=== PATIENT | male | born 1955 | race Caucasian/White ===

== ENCOUNTER 2016-12-04 17:24 | Observation (INO) | payer OTHER ==
[~2016-12-04] VITALS: Ht 188 cm; Wt 119.0 kg
[2016-12-04 17:34] VITALS: BP 151/94; PULSE 72; RESP 14; O2SAT 98
[2016-12-04 17:59] LABS: BASOPHILS % (AUTO) 0.5 % (0-3); EOSINOPHILS % (AUTO) 1.6 % (0-5); MONOCYTES % (AUTO) 13.1 % (4-12); Mean Corpuscular Hemoglobin 31.3 pg (27.0-35.0); Mean Corpuscular Volume 99.3 fL (81-100); NEUTROPHILS % (AUTO) 64.2 % (40-74); Platelet Count 164 bil/L (150-400)
--- NOTE | 2016-12-04 18:11 | ED.REPORT ---
HPI-General Illness Date of Service Dec 04, 2016 ED Provider: Satinder Baez MD 61 y/o male with a hx of DVT (on Warfarin) was sent to the ED after his CT angio chest resulted positive for pericardial effusion today.The pt got a CT done as ordered by his PCP due to persistent non-productive cough for the last 5 months. He also reports fatigue, SOB with exertion recently, intermittent subjective fever and night sweats. He denies chest pain but states "if I start doing a bunch of stuff, I feel there is a tightness in my chest". In the ED, the pt's labs show that he is anemic. He denies hx of anemia, melena, bleeding ulcers, weightloss, abdominal pain and using non-inflammatory medications. The pt states he had blood work done 2 days ago and was told he may have a blood clot. He has a family hx of clots. 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 He states he was in [facility] about 5 months ago but his cough started before he left. His states "we couldn't tie the cough to anything." The pt denies smoking. PCP: Jose Lai at [facility]. CODE STATUS: Full code Nursing Notes Stated Complaint: PERICARDIAL EFFUSION Chief Complaint: Chest Pain Nursing Notes Reviewed: Yes Allergies: Coded Allergies: No Known Allergies (Unverified , 12/04/16) Scheduled Warfarin Sodium (Warfarin Sodium) 5 Mg Tablet 5 MG PO 5 days per week Warfarin Sodium (Warfarin Sodium) 2.5 Mg Tablet 2.5 MG PO MON/FRI General Time Seen by MD: 18:11 Chief Complaint Cough Hx Obtained From: Patient Arrived By: Walk-in Sudden in Onset?: No Onset Occurred: More than a week ago... 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 Physical Exam Vital Signs Vital Signs Date Time Temp Pulse Resp B/P Pulse Ox O2 Delivery O2 Flow Rate FiO2 12/04/16 17:34 36.8 72 14 151/94 98 Room Air Initial VS: Reviewed Head / Eyes: Atraumatic, Normocephalic Extremities: Vascular intact, Neuro intact, No swelling, No tenderness Skin: Warm, Dry, No cyanosis Neurologic: Alert, Oriented, Nonfocal General/Constitutional: Awake, Alert, No acute distress, Well appearing, Well developed Neck: Atraumatic, Supple, Full range of motion, No adenopathy Neck Vascular: Positive: JVD mild Respiratory / Chest: Atraumatic, Breath sounds NL, Breath sounds = bilat, No respiratory distress, No rales, No rhonchi, No wheezing Cardiovascular: Heart rate NL, Regular rhythm, Heart sounds NL, No gallop, No murmurs, No rubs Abdomen: Atraumatic, Soft, Non-tender, No guarding, No rebound Rectum / Perineum: Atraumatic Trace guaiac positive Interpretation & Diagnostics Lab Results Interpretation Result Diagram: 12/04/16 1750 12/04/16 1750 Test 12/04/16 17:50 White Blood Count 5.7th/mm3 (3.8-10.1) Red Blood Count 2.75mil/mm3 (4.40-5.80) Hemoglobin 8.6g/dL (13.8-17.2) Hematocrit 27.3% (41.0-50.0) Mean Corpuscular Volume 99.3fL (81-100) Mean Corpuscular Hemoglobin 31.3pg (27.0-35.0) Mean Corpuscular Hemoglobin Concent 31.5% (32.0-37.0) Red Cell Distribution Width 16.6% (12.3-15.4) Platelet Count 164bil/L (150-400) Neutrophils (%) (Auto) 64.2% (40-74) Lymphocytes (%) (Auto) 20.1% (14-46) Monocytes (%) (Auto) 13.1% (4-12) Eosinophils (%) (Auto) 1.6% (0-5) Basophils (%) (Auto) 0.5% (0-3) Erythrocyte Sedimentation Rate > 140mm/hr (0-30) Prothrombin Time 17.4sec (8.1-12.5) Prothromb Time International Ratio 1.61ratio Sodium Level 133mEq/L (134-144) Potassium Level 4.5mEq/L (3.5-5.2) Chloride Level 96mEq/L (97-108) Carbon Dioxide Level 20mmol/L (18-29) Blood Urea Nitrogen 11mg/dL (8-27) Creatinine 1.02mg/dL (0.76-1.27) Estimat Glomerular Filtration Rate 79mL/min (>59) Glucose Level 110mg/dL (60-99) Calcium Level 9.0mg/dL (8.5-10.1) Magnesium Level 1.9mg/dL (1.6-2.6) Iron Level 49ug/dL (35-150) Total Iron Binding Capacity 198ug/dL (250-450) Percent Iron Saturation 25%sat (15-50) Unsaturated Iron Binding 148.7ug/dL Total Bilirubin 0.4mg/dL (0.0-1.2) Aspartate Amino Transf (AST/SGOT) 61U/L (0-50) Alanine Aminotransferase (ALT/SGPT) 93U/L (0-44) Alkaline Phosphatase 102U/L (25-160) Troponin T < 0.010ug/L (0.0-0.011) Total Protein 9.5g/dL (6.4-8.4) Albumin 2.8g/dL (3.4-5.0) Thyroid Stimulating Hormone (TSH) 1.250uIU/mL (0.450-4.500) Hold Elias Top Tube Received (Received) ECG Interpretation ECG Interpretation: Sinus rhtyhm normal. Rate 69 Low voltage without electric alternans No acute changes Time: 06:09 Interpreted by: ED physician Normal ECG Interpretation: Normal rate, Normal sinus rhythm Re-Eval/Medical Decision Med Decision/Clinical Course 61 year old male with new finding of pericardial effusion. Stable at present, will be admitted for further eval/cardiology consult. Time of Eval: 18:52 Re-Evaluation/Progress Note: Rechecked pt. Discussed lab results, imaging results, diagnosis, consult with Dr. Sierra and plan to admit. The pt understands and agrees with the plan. All questions answered. Consultation #1: Referral / Consult Name: Evangelina Sierra MD Consulted With: Cardiology Call Returned at: 18:44 Note: Dr. Sierra will call back after reviewing imaging. Consultation #2: Referral / Consult Name: Evangelina Sierra MD Consulted With: Cardiology Call Returned at: 18:52 Teacher'S Assistant: Will see patient, Agrees with eval, Agrees with plan Note: Dr. Sierra does not think stat ECHO is needed. She recommends ECHO, SPEP, UPEP, ECHO, Tsh and ZOYA after admit. Consultation #3: Referral / Consult Name: Louis Honeycutt MD Consulted With: Hospitalist Call Returned at: 19:13 Teacher'S Assistant: Will see patient, Agrees with eval, Agrees with plan, Accepts admit Counseled Regarding: Diagnosis, Lab results, Need for admission Discharge & Departure Primary Impression: Pericardial effusion Disposition: ADMITTED TO HOSPITAL Discharge Condition All VS Reviewed: Yes Referrals: Jose Lai MD (PCP) Scribe Attestation Portions of this note were transcribed by Chad Sanchez. I, , personally performed the history, physical exam and medical decision- making;I reviewed and confirmed the accuracy of the information in the transcribed note. Signed by Quincy Rowland. 12/04/16 19:30 copies to: Jose Lai MD, Donald L MD Dec 04, 2016 18:11 Chad Sanchze Dec 04, 2016 18:15
[2016-12-04 18:28] LABS: TROPONIN T < 0.010 ug/L (0.0-0.011)
[2016-12-04 18:37] LABS: Magnesium 1.9 mg/dL (1.6-2.6)
[2016-12-04 19:00] LABS: INR 1.61 ratio
[2016-12-04] MEDS ORDERED: WARF5TAB7 PO (19:24)
[2016-12-04] MEDS ORDERED: WARF2.5T82 PO (19:24)
[2016-12-04] MEDS ORDERED: Ondansetron 2 mg/mL 2 mL Inj IVPUSH PRN ×2 (19:40→20:35)
[2016-12-04] MEDS ORDERED: Alum-Mag Hydrox-Simeth 30 mL Suspension PO PRN ×2 (19:40→20:35)
[2016-12-04] MEDS ORDERED: Polyethylene Glycol (PEG) 17 Gm Powder PO PRN (20:35)
[2016-12-04 21:03] LABS: Unsaturated Iron Binding 148.7 ug/dL
--- NOTE | 2016-12-04 21:03 | PCM.HPMED ---
Subjective Date of Service Dec 04, 2016 Primary Provider: Admitting Physician: Louis Honeycutt MD Primary Care Physician: Jose Lai MD Attending Physician: Louis Honeycutt MD Chief Complaint: Cough, pericardial effusion History of Present Illness: Patient is a 61 y/o male with a hx of DVT (on chronic Warfarin) who was sent to the ED after his CT angio chest resulted positive for pericardial effusion today.The CT chest was ordered by his PCP due to persistent non-productive cough for the last 5 months. He also reports fatigue, mild SOB with exertion recently (feels winded after climbing a set of stairs), intermittent chest tightness, intermittent subjective fever and night sweats. He denies chest pain , palpitations, dizziness, or fainting. The pt states he had blood work done 2 days ago and was told he may have a blood clot. He has a family hx of clots. He states he was worked up in the past for a clotting disorder but the panel was negative. Hb was 8.6, Hct was 27.3. He denies hx of anemia, melena or hematochezia, bleeding ulcers, weight loss, abdominal pain and using NSAIDs. His last colonoscopy was 3 years ago, with some polyps removed. He was told to repeat the colonoscopy in 5 years. He denies family history of colon cancer. 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 He states he was in [place] about 5 months ago but his cough started before his trip. BP was 151/94, Na 133, AST 61, ALT 93, trop <0.01, ESR >140. INR 1.61. PCP: Jose Lai Review of Systems: Comprehensive review of systems conducted and was negative except for the pertinent positives listed above. Allergies Coded Allergies: No Known Allergies (Unverified , 12/04/16) Home Medications Warfarin 2.5 mg Mon/Fri and 5 mg other days PMH DVT Surgical History None Family History Family hx of clots - Cousin, uncle, grandfather Grandmother - Diabetes Social History Smoking Status: Never Smoker Exam Vital Signs Vital Sign - Last Date Time Temp Pulse Resp B/P Pulse Ox O2 Delivery O2 Flow Rate FiO2 12/04/16 17:34 36.8 72 14 151/94 98 Room Air Exam General: Alert, Oriented X3, Cooperative, No acute distress Head: Normocephalic, atraumatic. External ears normal. Eyes: PERRLA, EOMI. Anicteric sclerae. Mouth: Mouth normal, Mucous membranes moist/pink Neck: Neck supple with full range of motion. Chest& Lungs: Clear to auscultation bilaterally with no crackles, wheezes, or rhonchi. Cardiovascular: Regular rate/rhythm, Normal S1, Normal S2, No murmurs/rubs/ gallops Abdomen: Non-tender, Non-distended, No masses, Normoactive bowel tones, Soft Musculoskeletal: Normal range of motion Extremities: No cyanosis/clubbing/edema bilaterally Neurological: Grossly neurologically intact. Normal speech Lab and Diagnostics Result Diagram: 12/04/16174912/04/161749 X-Rays, CTs and MRIs Date of Service: 12/04/16 155 PROCEDURE: CT ANGIO CHEST PULMONARY EMBOLISM ([id number]) INDICATIONS: DYSPNEA Moderate pericardial effusion. Acute pericarditis and/or tamponade physiology cannot be excluded. Recommend clinical correlation. No pulmonary embolism identified. No acute consolidation. Dictated by: Ozzy Castaneda M.D. on 12/04/2016 at 17:02 Approved by: Ozzy Castaneda M.D. on 12/04/2016 at 17:24 Assessment & Plan Patient is a 61 y/o male with a hx of DVT (on chronic Warfarin) who was sent to the ED after his CT angio chest resulted positive for pericardial effusion today. Pericarditis, acute. Present on admission. - CT angio showed moderate pericardial effusion. Pt reports cough, dyspnea, chest pressure, and night sweats. No JVD on exam, vitals are stable, and patient is asymptomatic. EKG shows normal sinus rhythm. Pt appears to be stable with low risk of tamponade at this time. ESR elevated. No recent viral/ bacterial illness, and pt denies any exposure to TB, although he did visit the [place] 5 months ago. Although suspicion is low, will order QF gold to rule out TB. No hx of recent trauma, radiation, or IA. Differential includes autoimmune vs malignant process. Suspicion low for infectious process as pt has no measured fevers and no infectious markers. As he is also anemic and has hx of polyps, he should follow-up with GI in the outpatient setting as well for eval for early colonoscopy. The patient is stable for now, but may eventually need a pericardiocentesis for diagnostic purposes. - TSH - ZOYA - SPEP/UPEP - Quantiferon Gold ordered - Echocardiogram in AM - Monitor on telemetry - Monitor vitals regularly - Dr. Sierra is consulted. We appreciate her input. - Outpatient follow up with GI for colonoscopy - Consider repeat hypercoagulable panel outpatient - Consider pericardiocentesis if workup is negative. Elevated LFTs, acute. Present on admission. - Pt has mildly elevated. Pt is asymptomatic. - Abd US ordered Anemia, unknown chronicity. - Hb 8.6. Pt has history of polyps. Denies hematochezia/melena. Guaiac mildly positive in ED. - Recheck CBC in AM - Outpatient follow up with GI for colonoscopy History of DVT - Continue home warfarin - Bowel regimen as needed - Antiemetic as needed Patient is admitted under observation status with expected length of stay less than 2 midnights due to severity of presenting symptoms, risk of adverse event, and complexity of treatment plan. VTE Prophylaxis: Other (Pt on warfarin) Resuscitation Status: CPR: Attempt Resuscitation Figueroa Hall Dec 04, 2016 21:03
--- NOTE | 2016-12-04 21:05 | PCM.CONPHA ---
Assessment/Plan Assessment/Plan ANTICOAGULATION MANAGEMENT BY PHARMACY -INDICATION: DVT HX -HOME DOSE: 2.5 MG MON/FR 5 MG AOD -CONCURRENT ANTICOAGULATION: NONE -COAG TRENDS: Date -Nov INR 1.61 PLAN: PATIENTS TOOK HOME DOSE TODAY SO WILL WAIT UNTIL TOMORROWS INR COMES BACK AND EVALUATE. Pharmacy appreciates consult and will continue to monitor. THANKS! Jania Hoffman PharmD Dec 04, 2016 21:05
[2016-12-04 21:07] VITALS: BP 144/88; PULSE 76; RESP 16; O2SAT 97
[2016-12-04 21:27] VITALS: BP 143/96; PULSE 73; RESP 18; O2SAT 96
[2016-12-04 22:52] LABS: APPEARANCE,URINE HAZY (CLEAR,HAZY); COLOR,URINE STRAW (YELLOW); OCCULT BLOOD,URINE MODERATE (NEGATIVE); PH,URINE 5.5 (5.0-8.0); UROBILINOGEN,URINE NORMAL (NORMAL)
--- NOTE | 2016-12-04 23:59 | NUR ---
ADMIT NOTE Pt arrived to [facility] approx 2124. Pt able to ambulate from stretcher to bed, steady on feet. VS obtained. Pt placed on remote telemetry, medical lab technician notified. IV saline locked, flushed, patent. US of abdomen performed in pts room. Pt denies any pain. Continue to monitor. Call light in reach. Pts in room. Intentional rounding.
[2016-12-05] VITALS (7 sets, daily range): BP systolic 110–142; BP diastolic 71–86; PULSE 66–78; RESP 18; O2SAT 96–97
[2016-12-05 07:25] LABS: BASOPHILS % (AUTO) 0.6 % (0-3); EOSINOPHILS % (AUTO) 1.9 % (0-5); Mean Corpuscular Hemoglobin 31.7 pg (27.0-35.0); Mean Corpuscular Volume 99.6 fL (81-100); NEUTROPHILS % (AUTO) 67.2 % (40-74); Platelet Count 160 bil/L (150-400)
[2016-12-05 07:54] LABS: INR 1.74 ratio
--- NOTE | 2016-12-05 09:23 | CONS ---
[address] [address] CONSULTATION REPORT PATIENT: GEORGE JUÁREZ : 1955 MR#: [id number] ADMIT: 12/04/2016 JOB ID: [id number] DATE OF SERVICE: 12/05/2016 IDENTIFICATION: Dr. Hall has asked that I consult on this 61-year-old male admitted with a pericardial effusion. 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 He has a family history of DVT, but apparently personally has had a negative hypercoagulable workup. He was generally in his usual state of health until around five months ago when he noted a dry nonproductive cough. He traveled to the [facility] around three months ago and felt relatively well, but around five weeks ago awoke with dyspnea and diaphoresis with sweating through his sheets. He has not had any further episodes of this, but around 2-3 weeks ago started to note the onset of mild exertional dyspnea without any resting dyspnea. This dyspnea has not been particularly progressive. His energy level, however, clearly has declined. He described some brief exertional chest pressure, but none lasting more than a few seconds located at the mid chest without any radiation and comes on rather unpredictably. He has had no sense of any palpitations or lightheadedness. He has chronic mild edema without any recent change. He presented to Dr. Lai's office and had some type of blood work that was concerning for a blood clot and therefore, was sent for a chest CT angiogram which was unremarkable for any pulmonary embolism or pleural effusion, but suggested a moderate pericardial effusion although on my personal review of those images, I suspect it is more small to moderate, if that. There is some pericardial calcification, noted however. On the basis of these findings, he was sent to the emergency department where he was noted to be quite stable with a heart rate of 72 and a blood pressure of 151/94. However, he was found to be significantly anemic with a hematocrit of 27% with a weakly positive guaiac stool. His AST and ALT were also moderately elevated at 61 and 93, respectively. His ESR was markedly elevated at 140. He was subsequently admitted for further evaluation. Currently, he feels well without any specific complaints. He is able to lay flat without any difficulty. He denies any tuberculosis exposure or previous history of tuberculosis. There is no previous history of tobacco use, hypertension, or diabetes. He is uncertain of his lipid status. PAST MEDICAL HISTORY: Otherwise unremarkable, except for his history of DVT. HOME MEDICATIONS: Warfarin. ALLERGIES: No known drug allergies. FAMILY HISTORY: No family history of heart disease, with the exception of a brother who had a "slight heart attack" in his early 50s, but is a long-term smoker. 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 He admits to 1-2 alcoholic beverages per week on average. REVIEW OF SYSTEMS: A complete review is performed and is notable for the absence of any recent weight change. He denies any fevers or chills although has had some "flushing" but has never had an elevated temperature. Denies any recent vision change or ENT problems. Denies any hemoptysis or productive cough. No history of any peptic ulcer disease or overt evidence of GI blood loss. He denies any recent change in his bowel habits. No genitourinary symptoms or hematuria. Denies any musculoskeletal complaints. Never has had any stroke-like symptoms. Denies any history of thyroid or bleeding disorder. No history of anxiety or depression. PHYSICAL EXAMINATION: General: Pleasant, moderately obese, middle-aged white male, in no distress. Vital signs: HR 78, BP 142/85. O2 saturation 97% on room air. Weight is 119 kg. Skin: Warm and dry with a somewhat thor complexion. HEENT: EOMI without arcus. He has fairly good dentition. Lungs: Clear bilaterally to auscultation and percussion without any rales or wheeze. CV: Nonpalpable PMI with a regular rate and rhythm with occasional premature beat. There are no appreciable murmurs, gallops, or rubs. There is no obvious JVD. Carotid and femoral pulses are 2+ bilaterally with a normal upstroke without bruit. Dorsalis pedis pulses are 2+ bilaterally and posterior tibial pulses 1+ on the right and 2+ on the left. Abdomen: Mildly obese, but nondistended, nontender without any palpable masses or organomegaly. Normal bowel tones are present without bruits. There is no obvious hepatojugular reflux. Extremities: Warm with trace edema. Neuro: Moves all four extremities. Psych: Awake, alert, and oriented. LABORATORY: White count was 5.7 with hematocrit of 27% on admission and is 26% today. ESR is greater than 140. INR was 1.6. Sodium this morning is 137 with a potassium of 4.5, and a BUN of 10 with a creatinine of 1.0. Glucose is 111. Iron is 49 with a TIBC of 198. His AST has improved from 61 down to 47 and his ALT is improved from 93 down to 77. Albumin is 2.7. TSH was normal at 1.25. SPEP is pending. UPEP is pending. ZOYA is pending. ELECTROCARDIOGRAM: Shows sinus rhythm at 69 beats per minute with a borderline incomplete right bundle branch block, but otherwise normal. IMPRESSION: 1. Pericardial effusion of uncertain etiology. On the basis of his CT, I doubt that there is any tamponade physiology and the effusion does not appear to be large enough to tap, but this will be confirmed by echocardiography. The differential diagnosis for this would include an infectious process, most likely viral, but with the pericardial calcification, tuberculosis is also a concern, particularly given his cough and fatigue. Therefore, an evaluation for tuberculosis should be pursued and an infectious disease consultation may be appropriate, but I will defer this to the hospitalist. Alternatively, this could represent an autoimmune disorder, particularly with his elevated ESR; although, he has no other stigmata of such. A rheumatoid arthritis factor should also be checked. Finally, malignancy is always a concern. With his anemia, I would be concerned about some type of a gastrointestinal process and this should be thoroughly investigated. His albumin is fairly markedly low and he has abnormal liver function. Also raising a concern for some type of systemic process. As long as his echocardiogram shows no evidence for tamponade or significant constrictive pericarditis, then I think that he can be discharged from a cardiology standpoint, but may require further evaluation because of his anemia. A repeat echocardiography could be considered in several months depending upon the results of his diagnostic studies. 2. Exertional dyspnea and fatigue. Could be reflective of a systemic illness and/or his anemia which is significant. Further evaluation per the hospitalist. 3. Atypical mild exertional chest discomfort. The brevity of his discomfort mitigates against angina and he has minimal risk factors. Yet, an ischemic evaluation could be pursued at some point, but I would defer this until his anemia is corrected which may resolve his chest discomfort. If he continues to have occasional chest discomfort. After repletion of his hematocrit, then an exercise treadmill test can be considered as an outpatient. 4. History of deep venous thrombosis (DVT) per the hospitalist. 5. Uncertain lipid status. A lipid panel should be checked at some point, but can be deferred at this time. 6. Abnormal liver function tests (LFT). As above. 7. Anemia. As above. RECOMMENDATION: 1. Evaluate for possible tuberculosis. 2. Check a rheumatoid factor. 3. Check an echocardiogram. As long as this does not show any evidence for tamponade or constrictive pericarditis, there is a limited role for Cardiology. 4. Further evaluation for possible malignancy and cause of his anemia which is deferred to the hospitalist. 5. At this point, I will not plan on following up on the patient unless his echocardiogram shows some concerning the abnormal results. TIME SPENT: I spent 1 hour and 30 minutes reviewing the patient's medical record, interviewing and examining the patient, and answering his questions.
--- NOTE | 2016-12-05 10:30 | PCM.PHAPRO ---
Progress Cough, pericardial effusion WARFARIN DOSING PER PHARMACY Date -Dec 05-Nov INR 1.61 1.74 INR change 0.13 Warf Dose 5 MG 5MG Pharmacy will continue to follow, thank you. Doris Gaspar PharmD Dec 05, 2016 10:30
--- NOTE | 2016-12-05 11:31 | DRSVH ---
[facility] [address] [place] [address] Echocardiogram Report Name: GEORGE JUÁREZ Date : 12/05/2016 Height: 74 in Hospital Exam Location: [facility] Weight: 26 2 lb Gender: Male BSA: 2.4 m2 : 1955 Age: 61 yrs BP: 142/85 mmHg Reason For Study: Pericardial Effusion Ordering Physician: HOSPITALIST [facility] Performed By: Mukul Becerra Referring Physician: JUDE CHE Interpretation Summary The left ventricle is normal in size and left ventricular systolic function is normal with the ejection fraction estimated to be 60-65% without focal wall motion abnormalities athough there is paradoxical motion to the septum. There is borderline concentric left ventricular hypertrophy. Assessment of diastolic parameters indicates normal left ventricular diastolic function and normal filling pressures. The right ventricle is normal size and right ventricular systolic function is at the lower limits of normal. Pulmonary artery pressures cannot be estimated because of the lack of a measurable TR jet velocity but the IVC is significantly dilated, suggesting a high right atrial pressure of 15 mm Hg. Both atria are normal in size. There is no significant valvular heart disease. The ascending aorta and aortic arch are mild-moderately enlarged. There is a trivial to small noncircumferential pericardial effusion noted, mosty adjacent to the right ventricle without echocardiographic indications of cardiac tamponade. Procedure: A two-dimensional transthoracic echocardiogram with color flow and Doppler was performed. The study quality was technically adequate. There is no prior echocardiogram noted for this patient. The patient was in normal sinus rhythm during the exam. Left Ventricle: The left ventricle is normal in size. There is borderline concentric left ventricular hypertrophy. Left ventricular systolic function is normal without focal wall motion abnormalities. The ejection fraction is estimated to be 60-65%. Although there is paradoxical motion to the septum. Assessment of diastolic parameters indicates normal left ventricular diastolic function and normal filling pressures. Right Ventricle: The right ventricle is normal size. Right ventricular systolic function is at the lower limits of normal. Atria: Both atria are normal in size. The interatrial septum is intact with no evidence for an atrial septal defect. Mitral Valve: There is mild mitral annular calcification. There is no mitral regurgitation noted. Aortic Valve: The aortic valve is trileaflet. The aortic valve is slightly calcified. The aortic valve opens well. No aortic regurgitation is present. Tricuspid Valve: The tricuspid valve is normal. There is trace tricuspid regurgitation. Pulmonary artery pressures cannot be estimated because of the lack of a measurable TR jet velocity. Pulmonic Valve: The pulmonic valve leaflets are thin and pliable; valve motion is normal. There is no pulmonic valvular regurgitation. There is no significant valvular heart disease. Great Vessels: The aortic root is normal size. The ascending aorta is moderately enlarged. The aortic arch is mild-moderately enlarged. The pulmonary artery is normal size. The IVC is dilated (diameter is greater than 2.1 cm) and it collapses less than 50% with a sniff. This suggests a high right atrial pressure of 15 mm Hg. Pericardium/ Pleura There is a trivial to small pericardial effusion noted. There are no echocardiographic indications of cardiac tamponade. There is no pleural effusion. MMode/2D Measurements & Calculations LVIDd: 4.5 cm RA long axis LVOT diam: 2.2 cm LVIDs: 3.3 cm LA A2 area: 19.8 cm Ao root diam FS: 27.4 % LA A4 area: 21.0 cm RA area IVSd: 1.1 cm LA length (vol) asc Aorta Diam LVPWd: 1.1 cm : 19.3 cm LA vol: 59.2 ml RA vol Ao Arch Diam (Prox LA vol index : 62.0 ml Trans): 3.4 cm RA : 25.4 mm2 IVC diam: 3.2 cm LV barry. diameter/BSA LV sys. diameter/BSA RVD1 (basal) TAPSE: 1.2 cm (cm/m^2): 1.9 (cm/m^2): 1.3 Doppler Measurements & Calculations Ao V2 max: 123.4 cm/secMV E max andriy MV E/A: 1.6 PA V2 max Ao max P.1 mmHg : 111.4 cm/sec Med Peak E' Andriy : 70.2 cm/sec Ao mean P.1 mmHg MV A max andriy PA mean PG LVOT Max Andriy : 68.7 cm/sec E/E' med: 11.6 : 1.3 mmHg : 106.0 cm/sec Lat Peak E' Andriy BALBINA(I,D): 4.1 cm E/E' lat: 13.7 sev ratio: 1.1 E/e' average MV dec time: 0.13 sec Ao V2 mean LV V1 max PG PA V2 mean : 83.5 cm/sec : 55.5 cm/sec Ao V2 VTI: 19.1 cm LV V1 VTI: 20.5 cmPA pr(Accel) : 41.6 mmHg BALBINA(V,D): 3.2 cm2 BALBINA indexed to BSA (cm^2/m^2): 1.7 Reading Physician:11:30 AM
--- NOTE | 2016-12-05 11:53 | NUR ---
Social Work: Screening/Readiness for Discharge D: EMR reviewed. Pt is a 61 y/o male admitted for pericardial effusion per H&P. Per MD in AM multi-disciplinary rounds, pt is likely to discharge today pending cardiology and echo results. Pt's insurance if [facility] and [facility] is Jose Lai MD. Pt's NOK is spouse, Lety Wadsworth ([phone]). A: Pt who is independent at baseline P: Pt likely to discharge home today via POV - pending cardiology and echo results. Per AM multi-disciplinary rounds, no discharge needs identified. SW will continue to follow if needs arise. PACO Hager Addendum: 12/05/16 at 1517 by PEÑA LEBLANC notified SW that pt will not discharge today as originally anticipated in AM multi-disciplinary rounds. Pt has not been cleared by cardiology and will be receiving TB test. Pt likely to discharge once pt has been cleared by cardiology and TB test results are determined. PACO Hager
[2016-12-05] MEDS ORDERED: Furosemide 10 mg/mL 4 mL Inj IVPUSH ONE (16:20)
--- NOTE | 2016-12-05 16:24 | PCM.PNMED ---
Subjective Date of Service Dec 05, 2016 Subjective Patient is a 61 y/o male with a hx of DVT (on chronic Warfarin) who was sent to the ED after his CT angio chest resulted positive for pericardial effusion today.The CT chest was ordered by his PCP due to persistent non-productive cough for the last 5 months. He also reports fatigue, mild SOB with exertion recently, intermittent chest tightness, intermittent subjective fever and night sweat. Symptoms have not changed today. He denies any hemoptysis, hematuria, melena, hematochezia. No other signs of bleeding reported. Exam Vital Signs Vital Sign - Last Date Time Temp Pulse Resp B/P Pulse Ox O2 Delivery O2 Flow Rate FiO2 12/05/16 14:48 36.7 66 18 120/82 96 Room Air Intake and Output 12/04/16 12/04/16 12/05/16 Cumulative From/Thru 15:00 23:00 07:00 12/04/16 17:34 - 12/05/16 06:22 Intake Total 700 ml 700 ml Output Total 1000 ml 1000 ml Balance -300 ml -300 ml Intake Oral 700 ml 700 ml Output Urine Total 1000 ml 1000 ml Exam General: Alert, Oriented X3, Cooperative, No acute distress Head: Normocephalic, atraumatic. External ears normal. Eyes: PERRLA, EOMI. Mouth: Mouth normal, Mucous membranes moist/pink Neck: Neck supple with full range of motion. Chest& Lungs: Clear to auscultation bilaterally with no crackles, wheezes, or rhonchi. Cardiovascular: Regular rate/rhythm, Normal S1, Normal S2, No murmurs/rubs/ gallops Abdomen: Non-tender, Non-distended, No masses, Normoactive bowel tones, Soft Musculoskeletal: Normal range of motion Extremities: No cyanosis/clubbing/edema bilaterally Neurological: Grossly neurologically intact. Normal speech Lab and Diagnostics Result Diagram: 12/05/16 0710 12/05/16 0710 X-Rays, CTs and MRIs Date of Service: 12/04/16 1551 PROCEDURE: CT ANGIO CHEST PULMONARY EMBOLISM ([id number]) INDICATIONS: DYSPNEA Moderate pericardial effusion. Acute pericarditis and/or tamponade physiology cannot be excluded. Recommend clinical correlation. No pulmonary embolism identified. No acute consolidation. Dictated by: Ozzy Castaneda M.D. on 12/04/2016 at 17:02 Approved by: Ozzy Castaneda M.D. on 12/04/2016 at 17:24 Assessment & Plan Patient is a 61 y/o male with a hx of DVT (on chronic Warfarin) who was sent to the ED after his CT angio chest resulted positive for pericardial effusion today. Pericarditis, acute. Present on admission. - CT angio showed moderate pericardial effusion. Pt reports cough, dyspnea, chest pressure, and night sweats. No JVD on exam, vitals are stable, and patient is asymptomatic. EKG shows normal sinus rhythm. Pt appears to be stable with low risk of tamponade at this time. ESR elevated. No recent viral/ bacterial illness, and pt denies any exposure to TB, although he did visit the [place] 5 months ago. Although suspicion is low, will order QF gold to rule out TB. No hx of recent trauma, radiation, or MN. Differential includes autoimmune vs malignant process. Suspicion low for infectious process as pt has no measured fevers and no infectious markers. As he is also anemic and has hx of polyps, he should follow-up with GI in the outpatient setting as well for eval for early colonoscopy. The patient is stable for now, but may eventually need a pericardiocentesis for diagnostic purposes. - TSH - ZOYA - SPEP/UPEP - Quantiferon Gold ordered - Echocardiogram in AM - Monitor on telemetry - Monitor vitals regularly - await cardiology input - Outpatient follow up with GI for colonoscopy - Consider repeat hypercoagulable panel outpatient - Consider pericardiocentesis if workup is negative. will discuss further with cardiology -will diurese patient -ID consult placed Elevated LFTs, acute. Present on admission. - Pt has mildly elevated. Pt is asymptomatic. - Abd US ordered Anemia, unknown chronicity. - Hb 8.6. Pt has history of polyps. Denies hematochezia/melena. Guaiac mildly positive in ED. - Recheck CBC in AM -will start iron supplementation,b12 folate level ordered -no signs of bleeding - Outpatient follow up with GI for colonoscopy History of DVT - Continue home warfarin - Bowel regimen as needed - Antiemetic as needed Patient is admitted under observation status with expected length of stay less than 2 midnights due to severity of presenting symptoms, risk of adverse event, and complexity of treatment plan. VTE Prophylaxis: Other (Pt on warfarin) Resuscitation Status: CPR: Attempt Resuscitation Robert,Birpal MD Dec 05, 2016 16:24
--- NOTE | 2016-12-05 18:36 | CONS ---
[address] [address] CONSULTATION REPORT PATIENT: GEORGE JUÁREZ : 1955 MR#: [id number] ADMIT: 12/04/2016 JOB ID: [id number] DATE OF SERVICE: 12/05/2016 INFECTIOUS DISEASE CONSULTATION: I thank Dr. Jones for this timely consult. REASON FOR CONSULTATION: Unexplained high sedimentation rate, cough, and weakness. 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 He was in his usual state of health until about five months ago by his report when he developed a dry cough. This cough was initially worse and slowly has improved but it persists and hangs on at this point. He also has noticed some exertional fatigue over the past few months as well as on a single occasion a drenching night sweat and some subjective fevers, which when checked were actually normal and were not elevated. The patient has a past medical history essentially confined to DVTs in both lower extremities. For which he has been on Coumadin for decades. Recently there was concern that he might have a pulmonary embolism. For that reason he underwent an outpatient CT scan of the chest which actually ended showing what was thought to be a moderate pericardial effusion. This led him to the ED and admission yesterday for evaluation of pericardial effusion. Subsequently he has been seen by Cardiology and had an echo which shows a small and perhaps even trivial pericardial effusion and no evidence of significant cardiac disease. As an incidental finding, it has been noted that he is anemic and has a very high sedimentation rate. The CT scan of the chest was done to look for a PE did not show any PE of course but did show some subtle atelectasis which led to concerns about tuberculosis and led to my being consulted with the question of whether he might have TB or some underlying latent infection. I have reviewed the patient's history in detail, as well as his travel history. He and his go on frequent cruises which are at least once a year which may involve the [place] or [place] areas, but these are strictly on and off standard cruises without extended exposure in the developing world. Otherwise, there has been no exotic travel and no travel to [place] or [place]. The patient is a nonsmoker and drinks alcohol socially. He does not use illicit drugs and has no exotic animal or other exposures. There has been no history of TB exposure. 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 He does not smoke, drinks alcohol only socially, and does not use illicit drugs. Travel history already summarized. FAMILY HISTORY: Negative for TB in first- or second-degree relatives. REVIEW OF SYSTEMS: No significant headache. No visual change. No pain with chilling. No oral lesions or trouble swallowing. No odynophagia or dysphagia. No stiff neck. He does have a cough which he has had for five months and it predates the most recent cruise he and his took in July and it is actually getting better. There has never been any hemoptysis or sputum production. No chest pain has been noted and no significant nausea, vomiting, or diarrhea. No dysuria, urgency, or frequency. No hematuria. Specifically, no swelling of the joints. No skin rash. Remainder of the review of systems is negative. PHYSICAL EXAMINATION: Reveals an afebrile gentleman temperature 36.7, pulse 66, respiratory rate 18, blood pressure 120/82, saturating well on room air. Examination of the head reveals no trauma. The patient's mental status is entirely normal. Conjunctivae are pale. Oral cavity without thrush, hairy leukoplakia, or palatal petechia. Neck supple, without adenopathy or JVD. Lungs are clear anteriorly and posteriorly. Cardiac tones regular rate and rhythm, without murmur. Abdomen soft, nontender, without organomegaly. No suprapubic fullness. No Duran catheter. No evidence of synovitis. No skin rash. Peripheral pulses are excellent. Neurologic exam is completely normal. LABORATORIES: Include white count of 5500 with normal diff. Hematocrit 26, platelet count 160,000. Sedimentation rate greater than 140. Creatinine 0.97. Alk phos normal at 96, though the ALT is high at 77. AST 47. Bilirubin 0.5. Albumin a bit low at 2.8. TSH is normal. SPEP pending. Urinalysis completely normal. QuantiFERON Gold has been ordered and is pending. Rheumatoid factor and ZOYA pending. An abdominal ultrasound was done yesterday and interestingly there is no reading and I will be asking Radiology to supply the final reading there. I did review in detail the CT scan that was done as an outpatient. There is really nothing in the CT scan of the chest of concern except some very very subtle atelectasis perhaps. Certainly there is nothing there that would warrant any concern about tuberculosis. IMPRESSION: I think it is highly unlikely this patient has tuberculosis. There is no known exposure history and the patient has a dry nonproductive cough for the past few months which is actually getting better rather than worse. His CT scan of the chest is basically clear and he has no weight loss. When looking at his laboratories there are really three abnormalities. One is the sedimentation rate, which is over 140. Sed rates that high can be due to infection malignancy or connective tissue disease assuming the patient has normal renal function. Sed rates tend to be a bit higher in people who are anemic, but I do not think his anemia accounts for all of his high sed rate. Additionally, the patient has an anemia with a normal MCV which is interesting and has a guaiac positive stool. The 3rd laboratory abnormality is his albumin, which is a little bit low for a gentleman who is purportedly completely healthy. I think his exertional shortness of breath and fatigue he has had the last few months are related to his anemia and somehow we need a unifying diagnosis for anemia, high ESR, and a slightly low albumin. The most likely thing here of course would be some form of gastrointestinal process involving the stomach, duodenum, small-bowel or large-bowel, and it is notable that the patient did have an abnormal colonoscopy three years ago and is scheduled for another in two years. Also possible would be some form of occult abdominal malignancy as we have a CT scan which appears normal. In terms of infection I think it is highly unlikely that he actually has any infection, though it is worthwhile to look for hepatitis B and C. At this point, and perhaps just for completeness's sake, we will get two blood cultures to exclude the highly unlikely possibility of endocarditis. RECOMMENDATIONS: 1. Blood cultures x2. 2. Hep B antibody. 3. Hep C antibodies. 4. CRP. 5. I would consider doing a CT scan with contrast of the abdomen just as part of our fishing expedition for anemia and very high sed rate. 6. The patient tells me he has already been scheduled for colonoscopy and I suspect that he will also eventually require upper endoscopy if the colonoscopy is not diagnostic. 7. I see no indication for any antibiotics or infectious disease diagnostic studies beyond those mentioned above. Thank you very much for this consult.
--- NOTE | 2016-12-05 23:14 | NUR ---
Abdominal US Pt asked the result of Abdominal US completed yesterday 12/04, no result shown up in [facility]. US [id number] called, no one answer the phone.
[2016-12-06 00:51] VITALS: BP 122/77; PULSE 64; RESP 18; O2SAT 96
--- NOTE | 2016-12-06 05:26 | NUR ---
Uneventful Night Pt denies any pain/SOB at rest/N/V/Fever/chills. Cough intermittently,nonproductive, night sweat noted. VSS, afebrile. Lung sounds clear, distant S1 S2, no murmur or rubs noted. Tele: SR 60s 70s per vehicle monitor technician. Abdomen soft, nontender,BT active, no edema at all extremities. Pt alert and orientedx3,sleeping comfortably most of night.
[2016-12-06 06:03] LABS: INR 1.65 ratio
[2016-12-06 06:10] VITALS: PULSE 64
[2016-12-06 06:15] VITALS: BP 119/81; PULSE 69; RESP 18; O2SAT 96
[2016-12-06 08:00] VITALS: PULSE 74
[2016-12-06 08:38] LABS: BASOPHILS % (AUTO) 0.6 % (0-3); EOSINOPHILS % (AUTO) 3.1 % (0-5); Mean Corpuscular Hemoglobin 31.1 pg (27.0-35.0); Mean Corpuscular Volume 99.3 fL (81-100); NEUTROPHILS % (AUTO) 64.3 % (40-74); Platelet Count 178 bil/L (150-400)
[2016-12-06 08:58] VITALS: BP 134/85; PULSE 79; RESP 18; O2SAT 95
[2016-12-06] MEDS ORDERED: Warfarin 5 MG, Warfarin 2.5 MG PO ONE ×2 (09:10)
--- NOTE | 2016-12-06 10:57 | PCM.PHAPRO ---
Progress Cough, pericardial effusion WARFARIN DOSING PER PHARMACY Date Dec 05-Dec 06-Oct INR 1.61 1.74 1.65 INR change 0.13 -0.09 Warf Dose 5 MG 5MG 7.5 Will give one time dose of warfarin 7.5mg tonight due to continuing subtherapeutic levels Pharmacy will continue to follow, thank you. Doris Gaspar PharmD Dec 06, 2016 10:57
--- NOTE | 2016-12-06 11:38 | DRSVH ---
PROCEDURE: US ABDOMEN INDICATIONS: Elevated LFTs TECHNIQUE: Real-time scanning was performed of the abdominal and retroperitoneal organs, with image documentatio n. COMPARISON: None. FINDINGS: Liver length: 18.64 cm Gallbladder Wall Thickness: 3.80 mm CHD: 4.10 mm Spleen length: 10.98 cm Right kidney length: 12.42 cm Left kidney length: 12.99 cm Liver: Liver is diffusely increased in echogenicity. No focal hepatic abnormalities identified. No rmal hepatic size. Gallbladder: No stones or sludge. Gallbladder was mildly thickened measuring roughly 4 mm. No peric holecystic fluid or sonographic Davies sign. Biliary ducts: Intrahepatic bile ducts are non-dilated. Extrahepatic bile duct caliber is normal. Normal is 6-7 mm or less in diameter, or 10 mm or less post-cholecystectomy. Pancreas: Not visualized. Spleen: Spleen is normal in size and homogeneous in echotexture. Kidneys: Kidneys are normal in size and echotexture. No hydronephrosis or nephrolithiasis. No josefina d masses. Aorta: Visualized aorta is normal in caliber at less than 3 cm. Iliacs: Not visualized. IVC: Intrahepatic inferior vena cava is patent. Miscellaneous: No free abdominal fluid. IMPRESSION: 1. Increased hepatic echogenicity noted likely related to fatty infiltration of the liver but other s ources of hepatocellular disease cannot be excluded. Recommend clinical correlation. 2. Mild thickening of the gallbladder wall measuring up to 4.0 mm. Recommend clinical correlation to exclude developing cholecystitis. Dictated by: Calvin FIGUEROA Interpreted: Trinidad Graham MD on 12/05/2016 at 8:50 Approved by: Trinidad Graham M.D. on 12/06/2016 at 11:36
--- NOTE | 2016-12-06 11:45 | NUR ---
Off unit Pt off unit to CT, [employer] aware. 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
[2016-12-06 12:43] VITALS: BP 133/88; PULSE 68; RESP 16; O2SAT 96
--- NOTE | 2016-12-06 13:21 | DRSVH ---
PROCEDURE: CT ABDOMEN AND PELVIS WITH CONTRAST ([id number]) INDICATIONS: anemia, elevated inflam markers, r/o malignancy TECHNIQUE: After the administration of oral and intravenous contrast, 5 mm thick sections acquired from the diap hragms to the symphysis. 5 mm thick coronal and sagittal reformats were performed. For radiation do se reduction, the following was used: automated exposure control, adjustment of mA and/or kV accordi ng to patient size. COMPARISON: [facility], CT, CT ANGIO CHEST PE, 12/04/2016, 16:39. FINDINGS: Image quality: Excellent. ABDOMEN: Lung bases: Lung bases are clear. Heart size is normal but there is an exudative pericardial effusi on that is mild to moderate in overall quantity, and includes several thin pericardial calcifications both involving the visceral and parietal her cardiac. Solid organs: Liver and spleen are normal in size and enhancement. A small splenule measuring 1.3 c m lies at the inferior anterior splenic border Gallbladder appears contracted. Biliary system is non -dilated. Pancreas enhances normally. No adrenal nodules. Kidneys are normal in size and enhanceme nt, without hydronephrosis. Several small renal cortical cysts are incidentally noted. Peritoneum and bowel: Stomach, small bowel, and colon loops are normal in caliber and wall thickness . No free fluid or air. Nodes and vessels: No retroperitoneal or mesenteric adenopathy. Aorta and inferior vena cava are no rmal in caliber. Miscellaneous: No ventral hernias. PELVIS: Genitourinary: Bladder wall thickness is normal. Miscellaneous: No inguinal hernias or adenopathy. Bones: No suspicious bony lesions. No vertebral body compression fractures. IMPRESSION: No mass lesion found, within the abdomen and pelvis no inflammatory process is seen. There is, however, an exudative pericardial effusion that was previously identified 12/04/16 several da ys ago, with associated thin pericardial calcifications. Etiology is uncertain. No pericardial mass es are found. Pericardial inflammation is the likely cause but an unusual manifestation of pericardi al carcinomatosis conceivably could explain that appearance. Dictated by: Jameson Muir M.D. on 12/06/2016 at 13:16 Approved by: Jameson Muir M.D. on 12/06/2016 at 13:19
--- NOTE | 2016-12-06 14:20 | PCM.DIMED ---
Discharge Instructions Date of Service Dec 06, 2016 Dates of Hospitalization Dec 04, 2016 at 20:01 Discharge Diagnosis Discharge Diagnosis anemia Pericardial effusion Diet Discharge Diet: No restrictions Activity Discharge Activity: No restrictions Call your provider Call your provider for: Fever or Chills, Shortness of breath, Bleeding, Chest pain Patient Instructions Patient Instructions follow-up with GI for repeat endoscopy and colonoscopy. follow-up with Dr. peña, family physician Dr. Ervin from infectious disease as scheduled. Follow-up Provider: Navjot Ervin MD Follow-up with PCP in: 2 weeks Provider: Jose Peña MD Follow-up in: 1 week Johan Jones MD Dec 06, 2016 14:20
[2016-12-06] MEDS ORDERED: FERR-83 PO (14:21)
--- NOTE | 2016-12-06 14:24 | NUR ---
Social Work: Discharge Data: Pt is on day 2 of hospitalization. EMR reviewed. D/C orders are in. Pt discussed in rounds. MD states no d/c planning needs. [facility] will continue to follow if needs arise. Assessment: Pt who is independent at baseline. Plan: Pt will d/c home via POV today. states no d/c planning needs. [facility] will continue to follow if needs arise. PACO Garcia
--- NOTE | 2016-12-06 14:32 | PCM.DC.MED ---
Discharge Summary Date of Service Dec 06, 2016 Dates of Hospitalization Date of Hospital Admission Dec 04, 2016 at 20:01 Date of Discharge: Dec 06, 2016 Providers: Admitting Physician: Louis Honeycutt MD Primary Care Physician: Jose Peña MD Attending Physician: Rick Jones MD Diagnosis at Time of Discharge Diagnosis at Time of Discharge anemia Pericardial effusion Procedures XRay, CTs & MRIs Date of Service: 12/04/16 1551 PROCEDURE: CT ANGIO CHEST PULMONARY EMBOLISM ([id number]) INDICATIONS: DYSPNEA Moderate pericardial effusion. Acute pericarditis and/or tamponade physiology cannot be excluded. Recommend clinical correlation. No pulmonary embolism identified. No acute consolidation. Dictated by: Ozzy Castaneda M.D. on 12/04/2016 at 17:02 Approved by: Ozzy Castanead M.D. on 12/04/2016 at 17:24 Brief History Patient is a 61 y/o male with a hx of DVT (on chronic Warfarin) who was sent to the ED after his CT angio chest resulted positive for pericardial effusion today.The CT chest was ordered by his PCP due to persistent non-productive cough for the last 5 months. He also reports fatigue, mild SOB with exertion recently (feels winded after climbing a set of stairs), intermittent chest tightness, intermittent subjective fever and night sweats. He denies chest pain , palpitations, dizziness, or fainting. The pt states he had blood work done 2 days ago and was told he may have a blood clot. He has a family hx of clots. He states he was worked up in the past for a clotting disorder but the panel was negative. Hb was 8.6, Hct was 27.3. He denies hx of anemia, melena or hematochezia, bleeding ulcers, weight loss, abdominal pain and using NSAIDs. His last colonoscopy was 3 years ago, with some polyps removed. He was told to repeat the colonoscopy in 5 years. He denies family history of colon cancer. 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 He states he was in [place] about 5 months ago but his cough started before his trip. BP was 151/94, Na 133, AST 61, ALT 93, trop <0.01, ESR >140. INR 1.61. PCP: Jose Peña Hospital Course Patient is a 61 y/o male with a hx of DVT (on chronic Warfarin) who was sent to the ED after his CT angio chest resulted positive for pericardial effusion today. Pericarditis, acute. Present on admission. - CT angio showed moderate pericardial effusion. Pt reports cough, dyspnea, chest pressure, and night sweats. No JVD on exam, vitals are stable, and patient is asymptomatic. EKG shows normal sinus rhythm. Pt appears to be stable with low risk of tamponade at this time. ESR elevated. No recent viral/ bacterial illness, and pt denies any exposure to TB, although he did visit the [facility] 5 months ago. Although suspicion is low, will order QF gold to rule out TB. No hx of recent trauma, radiation, or LA. Differential includes autoimmune vs malignant process. Suspicion low for infectious process as pt has no measured fevers and no infectious markers. As he is also anemic and has hx of polyps, he should follow-up with GI in the outpatient setting as well for eval for early colonoscopy. The patient is stable for now, but may eventually need a pericardiocentesis for diagnostic purposes. - TSH - ZOYA - SPEP/UPEP - Quantiferon Gold ordered - Echocardiogram in AM - Monitor on telemetry - Monitor vitals regularly - await cardiology input - Outpatient follow up with GI for colonoscopy - Consider repeat hypercoagulable panel outpatient - Consider pericardiocentesis if workup is negative. will discuss further with cardiology -will adalgisae patient -ID consult placed Elevated LFTs, acute. Present on admission. - Pt has mildly elevated. Pt is asymptomatic. - Abd US ordered Anemia, unknown chronicity. - Hb 8.6. Pt has history of polyps. Denies hematochezia/melena. Guaiac mildly positive in ED. - Recheck CBC in AM -will start iron supplementation,b12 folate level ordered -no signs of bleeding - Outpatient follow up with GI for colonoscopy Patient has had a complete evaluation here in the hospital. He had elevated inflammatory markers, infectious disease as well as cardiology did see the patient in consult. Multiple laboratory studies have been ordered in regards to the pericardial effusion noted that are still pending. His echocardiogram did not show any hemodynamic compromise no further intervention recommended from a cardiology standpoint. They are concerns that this may been a infectious process. again ID did see the patient TB low on the differential. Patient did have multiple concerning labratory findings including his iron deficiency and anemia . He is on Coumadin chronically for his DVTs however no signs of bleeding. H&H she did stay stable. No indication for transfusion. However considering the findings there were concerns about malignancy. We did do a CT of the abdomen did not show any obvious abnormalities. Patient does follow with gastroenterology Dr. Mejia who performed his colonoscopy in the past. He is recommended to follow-up in the GI clinic for repeat colonoscopy possibly an endoscopy which was discussed with him. Otherwise he was started on iron supplementation. If the patient's workup continues to remain negative and no obvious sources can be identified causing pericardial effusion/fibrosis next step may be possibly a biopsy which was discussed with him he would need to work this out with his primary care and cardiology an outpatient basis. On the day of discharge patient's vital signs were stable, he was tolerating oral intake, normal bowel and bladder function, he was at baseline. Subsequent was discharged home with instructions on close follow-up with primary care, GI and infectious disease. Exam Vital Signs (Last) Date Time Temp Pulse Resp B/P Pulse Ox O2 Delivery O2 Flow Rate FiO2 12/06/16 12:43 36.7 68 16 133/88 96 Room Air Test 12/04/16 17:50 12/04/16 21:30 12/05/16 07:10 12/05/16 19:10 Erythrocyte Sedimentation Rate > 140mm/hr (0-30) Magnesium Level 1.9mg/dL (1.6-2.6) Iron Level 49ug/dL (35-150) Total Iron Binding Capacity 198ug/dL (250-450) Percent Iron Saturation 25%sat (15-50) Unsaturated Iron Binding 148.7ug/dL Troponin T < 0.010ug/L (0.0-0.011) Thyroid Stimulating Hormone (TSH) 1.250uIU/mL (0.450-4.500) Hold Elias Top Tube Received (Received) Urine Color Straw (YELLOW) Urine Appearance Hazy (CLEAR,HAZY) Urine pH 5.5 (5.0-8.0) Urine Specific [place] 1.065 (1.003-1.035) Urine Protein 100mg/dL (NEG,TRACE) Urine Glucose (UA) Negativemg/dL (NEGATIVE) Urine Ketones Negativemg/dL (NEGATIVE) Urine Occult Blood Moderate (NEGATIVE) Urine Nitrite Negative (NEGATIVE) Urine Bilirubin Negative (NEGATIVE) Urine Urobilinogen Normalmg/dL (NORMAL) Urine Leukocyte Esterase Negative (NEGATIVE) Urine RBC 3-10/hpf (0-2) Urine WBC 0-5/hpf (0-5) Urine Epithelial Cells Few/hpf (NONE-MOD) Urine Crystals None seen (NONE SEEN) Urine Bacteria Few/hpf (NONE-FEW) Urine Hyaline Casts None/lpf (NONE) Urine Granular Casts None seen (NONE SEEN) Urine Waxy Casts None seen (NONE SEEN) Urine Red Blood Cell Casts None seen (NONE SEEN) Urine White Blood Cell Casts None seen (NONE SEEN) Urine Mucus Present (None Seen) Urine Trichomonas None seen (NONE SEEN) Urine Yeast None (NONE SEEN) Urinalysis Comment None Urine Culture Reflexed Not indicated Total Bilirubin 0.5mg/dL (0.0-1.2) Aspartate Amino Transf (AST/SGOT) 47U/L (0-50) Alanine Aminotransferase (ALT/SGPT) 77U/L (0-44) Alkaline Phosphatase 96U/L (25-160) Total Protein 9.0g/dL (6.4-8.4) Anti-Nuclear Antibody Screen Negative (Negative) Hepatitis B Surface Antigen Negative (Negative) Hepatitis C Antibody <0.1s/co ratio (0.0-0.9) Test 12/06/16 05:27 White Blood Count 4.9th/mm3 (3.8-10.1) Red Blood Count 2.86mil/mm3 (4.40-5.80) Hemoglobin 8.9g/dL (13.8-17.2) Hematocrit 28.4% (41.0-50.0) Mean Corpuscular Volume 99.3fL (81-100) Mean Corpuscular Hemoglobin 31.1pg (27.0-35.0) Mean Corpuscular Hemoglobin Concent 31.3% (32.0-37.0) Red Cell Distribution Width 17.1% (12.3-15.4) Platelet Count 178bil/L (150-400) Neutrophils (%) (Auto) 64.3% (40-74) Lymphocytes (%) (Auto) 20.0% (14-46) Monocytes (%) (Auto) 11.0% (4-12) Eosinophils (%) (Auto) 3.1% (0-5) Basophils (%) (Auto) 0.6% (0-3) Reticulocyte Count,Calculated 2.2% (0.6-2.6) Prothrombin Time 17.8sec (8.1-12.5) Prothromb Time International Ratio 1.65ratio Sodium Level 136mEq/L (134-144) Potassium Level 4.2mEq/L (3.5-5.2) Chloride Level 95mEq/L (97-108) Carbon Dioxide Level 21mmol/L (18-29) Blood Urea Nitrogen 13mg/dL (8-27) Creatinine 1.08mg/dL (0.76-1.27) Estimat Glomerular Filtration Rate 74mL/min (>59) Glucose Level 108mg/dL (60-99) Calcium Level 9.0mg/dL (8.5-10.1) C-Reactive Protein 4.1mg/dL (0.0-0.5) Discharge Medications Discharge Medications Ferrous Sulfate (Ferrous Sulfate) 325 Mg Tablet 325 MG PO BID Prescribed by: RICK JONES MD Warfarin Sodium (Warfarin Sodium) 5 Mg Tablet 5 MG PO 5 days per week (Reported ) Warfarin Sodium (Warfarin Sodium) 2.5 Mg Tablet 2.5 MG PO MON/FRI (Reported) Followup Plan Discharge Diet: No restrictions Discharge Activity: No restrictions Patient Instructions follow-up with GI for repeat endoscopy and colonoscopy. follow-up with Dr. peña, family physician Dr. Ervin from infectious disease as scheduled. Follow-up Provider: Navjot Ervin MD Follow-up with PCP in: 2 weeks Provider: Jose Peña MD Follow-up in: 1 week Rick Jones MD Dec 06, 2016 14:32
--- NOTE | 2016-12-06 14:47 | PROG NOTE ---
[address] [address] PROGRESS NOTE PATIENT: GEORGE JUÁREZ : 1955 MR#: [id number] ADMIT: 12/04/2016 JOB ID: [id number] DATE: 12/06/2016 REASON FOR FOLLOWUP: Question of infectious etiology of a pro-inflammatory state associated with a dry cough. INTERVAL HISTORY: The patient continues to have an intermittent dry cough but otherwise feels relatively well. No fevers, chills, or sweats. No chest pain, nausea, vomiting, diarrhea. The workup for his high ESR and CRP continues. PHYSICAL EXAMINATION: Reveals a comfortable gentleman. Temp 36.6, pulse 68, respiratory rate 16, blood pressure 133/88. He is saturating well on room air. He is in no acute distress. Oral cavity is unremarkable. Lungs clear. Cardiac tones without knock or pericardial souffle. Abdomen benign. LABORATORIES: Include white count 4900, platelet count 178. Creatinine 1.08. His hepatitis B and hep C are negative. ZOYA and rheumatoid factor negative. QuantiFERON Gold pending. Micro studies include negative blood cultures. A CT scan of the abdomen shows basically nothing abnormal in the abdomen and pelvis but there is a pericardial effusion which the radiologist described as exudative and pericardial calcifications. This is similar to what was seen on the chest CT. Neither the chest CT nor the abdominal CT showed much in the way of any pulmonary infiltrates, however. 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 The pericardial effusion which the radiologist interestingly described as exudative was noted on both CT scan of the chest and the abdomen. There are some small areas of calcification present in the pericardium as well. This is in association with a sed rate greater than 140, a CRP of 4, and an hematocrit of about 27-28. All of this suggests to me a possible GI mucosal process and it is notable that the patient had an abnormal colonoscopy three years ago with some polyps that were removed. Other possibilities here might include a connective tissue disease, a systemic infection such as TB or an occult malignancy elsewhere but I would be most concerned about the colon. RECOMMENDATIONS: 1. From an ID point of view, the patient can be discharged today. 2. No antibiotics are indicated. 3. I plan to see the patient in my clinic on December 18 to followup on his QuantiFERON Gold and also see if additional infectious disease workup is indicated. 4. This case discussed in person with Dr. Jones. 5. ID will sign off at this time.
--- NOTE | 2016-12-06 15:20 | NUR ---
DISCHARGE Pt discharged home this afternoon at 1510, req to [facility] off unit accompanied by this RN. Pt A&Ox4, vital signs stable, denies any pain and in no apparent distress. IV dc'd intact and all belongings returned. All instructions for diet, activity, medications, prescriptions and follow up reviewed with pt who reports understanding. Per , [facility] Customer Engagement Representative is [facility] for an appointment later today, [facility] notified who contacted their office.
[2016-12-07 08:09] LABS: Vitamin B12 417 pg/mL (211-946)
== END 2016-12-06 15:32 | disposition home or self-care (01) ==
LOC: SED 17:36 → MPC 20:01 → INTOOBSV 20:01
PROVIDERS: ADMIT Internal Medicine; ATTEND Internal Medicine
DX: I31.3 Pericardial effusion (noninflammatory) (principal); D64.9 Anemia, unspecified; R79.89 Other specified abnormal findings of blood chemistry; R06.02 Shortness of breath; Z86.718 Personal history of other venous thrombosis and embolism; Z79.01 Long term (current) use of anticoagulants
CPT/HCPCS: 36415; 74177; 76700; 80048; 80053; 81000; 82607; 82746; 83540; 83550; 83735; 84156; 84165; 84443; 84484; 85025; 85045; 85610; 85651; 86140; 86225; 86235; 86430; 87040; 87340; 93005; 96374; 99285; C8929; G0378; G0472; J1940; Q9967